=== PATIENT | male | born 1945 | race Caucasian/White ===

== ENCOUNTER 2018-10-18 10:15 | Outpatient (CLI) | payer MEDICARE, OTHER ==
[2018-10-18] MEDS ORDERED: REGADENOSON 0.4 MG/5 ML SYRINGE IVP ONE (11:10)
--- NOTE | 2018-10-18 17:58 | Nuclear Medicine Report ---
Reason: CHEST PAIN Procedure Date: 10/18/2018 Accession Number: [id number] / [id number] Procedure: NM - Myocardial Perfusion STR/RST CPT Code: FULL RESULT: EXAM: Myocardial Perfusion STR/RST DATE: 10/18/2018 1:53 PM CLINICAL HISTORY: CHEST PAIN COMPARISON: None. TECHNIQUE: Patient was injected with 10.7 mCi of technetium 99 M sestamibi. A myocardial perfusion study was attempted. However the patient became claustrophobic and was unable to complete the examination. Dr. Bailon was notified. FINDINGS/IMPRESSION: Unsuccessful myocardial perfusion examination due to claustrophobia.
== END 2018-10-18 10:16 | disposition home or self-care (01) ==
LOC: DI 10:15
PROVIDERS: ATTEND Internal Medicine
DX: R07.9 Chest pain, unspecified (principal)
CPT/HCPCS: 93017; A9500; 78452

== ENCOUNTER 2019-11-04 17:10 | Outpatient (CLI) | payer MEDICARE, OTHER | END 2019-11-04 17:11 | disposition critical access hospital (66) | LOC: EMS 17:10 | PROVIDERS: ATTEND Surgery | DX: R46.4 Slowness and poor responsiveness (principal); R41.0 Disorientation, unspecified | CPT/HCPCS: A0425; A0429 ==

== ENCOUNTER 2019-11-04 17:36 | Emergency (ER) | payer MEDICARE, OTHER ==
[2019-11-04 18:13] LABS: BASOPHILS # (AUTO) 0.1 10^3/uL (0.0-0.1); BASOPHILS % (AUTO) 0.6 %; EOSINOPHILS # (AUTO) 0.1 10^3/uL (0.0-0.7); EOSINOPHILS % (AUTO) 0.6 %; HGB - HEMOGLOBIN 16.6 g/dL (14.0-18.0); LYMPHOCYTES # (AUTO) 0.2 10^3/uL (1.5-3.5); LYMPHOCYTES % (AUTO) 2.6 %; MEAN CORPUSCULAR HEMOGLOBIN 34.9 pg (27.0-31.0); MEAN CORPUSCULAR HGB CONC 35.5 g/dL (32.0-36.0); MEAN CORPUSCULAR VOLUME 98.1 fL (80.0-94.0); MEAN PLATELET VOLUME 10.2 fL (7.4-11.4); MONOCYTES # (AUTO) 0.6 10^3/uL (0.0-1.0); MONOCYTES % (AUTO) 6.4 %; NEUTROPHILS # (AUTO) 7.8 10^3/uL (1.5-6.6); NEUTROPHILS % (AUTO) 89.2 %; PLT - PLATELET COUNT 144 10^3/uL (130-450); RED BLOOD COUNT 4.76 10^6/uL (4.70-6.10); RED CELL DISTRIBUTION WIDTH 13.6 % (12.0-15.0); WHITE BLOOD COUNT 8.8 x10^3/uL (4.8-10.8)
[2019-11-04 18:28] LABS: ALBUMIN 4.5 g/dL (3.2-5.5); ALBUMIN/GLOBULIN RATIO 1.3 (1.0-2.2); BILIRUBIN,TOTAL 0.9 mg/dL (0.2-1.0); CALCIUM 10.4 mg/dL (8.5-10.3); CREATININE 1.6 mg/dL (0.6-1.2); TOTAL PROTEIN 7.9 g/dL (6.7-8.2)
[2019-11-04 20:00] LABS: BILIRUBIN,URINE NEGATIVE (NEGATIVE); GLUCOSE, URINE (UA) NEGATIVE (NEGATIVE); KETONES,URINE (UA) NEGATIVE (NEGATIVE); LEUKOCYTE ESTERASE, URINE NEGATIVE (NEGATIVE); NITRITE,URINE NEGATIVE (NEGATIVE); OCCULT BLOOD,URINE TRACE-INTA (NEGATIVE); PH,URINE 6.5 PH (5.0-7.5); PROTEIN,URINE 30 mg/dL (NEGATIVE); UROBILINOGEN,URINE 0.2 (NORMAL) E.U./dL (NORMAL)
[2019-11-04 20:01] LABS: CLARITY,URINE CLEAR (CLEAR)
[2019-11-04 20:16] LABS: MUDS CUTOFF CONCENTRATIONS CUTOFF CONC BELOW:
[2019-11-04 20:20] LABS: BACTERIA,URINE None Seen /HPF (None Seen); RBC,URINE 0-5 /HPF (0-5); SQUAMOUS EPITHELIAL CELL,UR RARE Squamous (<= Few)
--- NOTE | 2019-11-04 20:21 | XRAY Report ---
PROCEDURE: Chest 1 View X-Ray INDICATIONS: fever TECHNIQUE: One view of the chest was acquired. COMPARISON: None FINDINGS: Surgical changes and devices: None. Lungs and pleura: No pleural effusions or pneumothorax. Lungs are clear. Mediastinum: Mediastinal contours appear normal. Heart is at the upper limits of normal in size. Bones and chest wall: No suspicious bony lesions. Overlying soft tissues appear unremarkable. IMPRESSION: No acute cardiopulmonary disease process. Reviewed by: Janny Rush MD, PhD on 11/04/2019 8:20 PM PDT Approved by: Janny Rush MD, PhD on 11/04/2019 8:20 PM PDT Station ID: [id number]
[2019-11-04 20:30] LABS: AMPHETAMINE SCREEN,URINE NEGATIVE (NEGATIVE); BENZODIAZEPINES SCREEN, URINE NEGATIVE (NEGATIVE); COCAINE SCREEN URINE NEGATIVE (NEGATIVE); METHADONE SCREEN, URINE NEGATIVE (NEGATIVE); METHAMPHETAMINES SCREEN, URINE NEGATIVE (NEGATIVE); OPIATE SCREEN, URINE NEGATIVE (NEGATIVE); OXYCODONE SCREEN, URINE NEGATIVE (NEGATIVE); PROPOXYPHENE SCREEN, URINE NEGATIVE (NEGATIVE); TRICYCLIC ANTIDEPRESSANT,URINE NEGATIVE (NEGATIVE)
--- NOTE | 2019-11-04 21:06 | ED Physician Documentation ---
History of Present Illness - Stated complaint Stated Complaint: MILDLY CONFUSED - Chief complaint Chief Complaint: General - History obtained from History obtained from: Patient - Additonal information Additional information: Patient is a 73-year-old male presents with a chief complaint of fever. Patient brought in by his who reported that he was not quite acting like himself and reported generalized weakness with no facial droop and no unilateral weakness. Reports that he has history of BPH and prostatitis as well. Review of Systems Constitutional: reports: Fever Eyes: reports: Reviewed and negative Ears: reports: Reviewed and negative Nose: reports: Reviewed and negative Throat: reports: Reviewed and negative Cardiac: reports: Reviewed and negative Respiratory: reports: Reviewed and negative GI: reports: Reviewed and negative : reports: Frequency, Hesitancy Skin: reports: Reviewed and negative Musculoskeletal: reports: Reviewed and negative Neurologic: reports: Generalized weakness Psychiatric: reports: Reviewed and negative Endocrine: reports: Reviewed and negative Immunocompromised: reports: Reviewed and negative PD PAST MEDICAL HISTORY - Past Medical History Past Medical History: Yes Cardiovascular: Hypertension Respiratory: None Endocrine/Autoimmune: None GI: Other : Benign prostate hypertrophy HEENT: Macular degeneration Psych: Depression, Anxiety, Bipolar disorder Musculoskeletal: None Derm: None Other Past Medical History: Colon Ca, global amensia - Past Surgical History Past Surgical History: Yes General: Colonoscopy HEENT: Other - Present Medications Home Medications: Ambulatory Orders Medication Instructions Recorded Confirmed Dorzolamide HCl/Timolol Maleat 1 drop EACHEYE DAILY 03/21/15 12/11/16 [Dorzolamide-Timolol Eye Drops] Latanoprost 1 drop EACHEYE QPM 03/21/15 12/11/16 [place] Carbonate 300 mg PO TID 03/21/15 12/11/16 Multivitamin [Multivitamins] 1 each PO DAILY 03/21/15 12/11/16 amLODIPine [Norvasc] 10 mg PO DAILY 03/21/15 12/11/16 busPIRone [Buspar] 10 mg PO TID 03/21/15 12/11/16 carBAMazepine ER [TEGretol XR] 200 mg PO QID 03/21/15 12/11/16 Tamsulosin [Flomax] 0.4 mg PO DAILY 11/21/15 12/11/16 Testosterone Cypionate 200 mg IM OAW 12/11/16 12/11/16 [Depo-Testosterone] Gemfibrozil [Lopid] 600 mg PO BID 11/04/19 11/04/19 Sulfamethox/Trimeth 800/160 1 each PO BID 14 Days #28 tablet 11/04/19 [Bactrim Ds 800/160] - Allergies Allergies/Adverse Reactions: Allergies Allergy/AdvReac Type Severity Reaction Status Date / Time No Known Drug Allergies Allergy Verified 11/04/19 17:44 - Social History Does the pt smoke?: No Smoking Status: Never smoker Does the pt drink ETOH?: No Does the pt have substance abuse?: No PD ED PE NORMAL - Vitals Vital signs reviewed: Yes - General General: Alert and oriented X 3, No acute distress, Well developed/nourished - HEENT HEENT: PERRL - Neck Neck: Supple, no meningeal sign - Cardiac Cardiac: RRR, No murmur - Respiratory Respiratory: Clear bilaterally - Abdomen Abdomen: Normal bowel sounds, Soft, Non tender, Non distended - Male Male : Deferred - Rectal Rectal: Deferred - Derm Derm: Warm and dry - Extremities Extremities: No deformity, No tenderness to palpate, Normal ROM s pain, No edema, No calf tenderness / cord - Neuro Neuro: Alert and oriented X 3, adult caregiver 2-12 intact, No motor deficit, No sensory deficit, Normal speech - Psych Psych: Normal mood, Normal affect Results - Vitals Vitals: Vital Signs - 24 hr 11/04/19 11/04/19 11/04/19 17:44 20:08 20:10 Temperature 38.1 C H 37.4 C Heart Rate 89 85 82 Respiratory 16 20 24 Rate Blood Pressure 169/93 H 140/108 H 140/108 H O2 Saturation 97 96 97 11/04/19 11/04/19 21:07 21:50 Temperature Heart Rate 81 82 Respiratory 22 18 Rate Blood Pressure 163/104 H 177/113 H O2 Saturation 97 99 Oxygen O2 Source Room air - EKG (time done) 17:46 Rate: Other (No STEMI, No prior EKG for comparison, Nonspecific EKG) - Labs Labs: Laboratory Tests 11/04/19 11/04/19 11/04/19 18:10 18:10 18:10 WBC 8.8 RBC 4.76 Hgb 16.6 Hct 46.7 MCV 98.1 H MCH 34.9 H MCHC 35.5 RDW 13.6 Plt Count 144 MPV 10.2 Neut # (Auto) 7.8 H Lymph # (Auto) 0.2 L [place] # (Auto) 0.6 Eos # (Auto) 0.1 Baso # (Auto) 0.1 Absolute Nucleated RBC 0.00 Nucleated RBC % 0.0 Sodium 137 Potassium 4.1 Chloride 103 Carbon Dioxide 20 L Anion Gap 14.0 H BUN 34 H Creatinine 1.6 H Estimated GFR (MDRD) 43 L Glucose 187 H Calcium 10.4 H Total Bilirubin 0.9 AST 16 ALT 16 Alkaline Phosphatase 65 Troponin I High Sens 9.7 Total Protein 7.9 Albumin 4.5 Globulin 3.4 Albumin/Globulin Ratio 1.3 Lipase 39 Urine Color Urine Clarity Urine pH Ur Specific [place] Urine Protein Urine Glucose (UA) Urine Ketones Urine Occult Blood Urine Nitrite Urine Bilirubin Urine Urobilinogen Ur Leukocyte Esterase Urine RBC Urine WBC Ur Squamous Epith Cells Urine Bacteria Ur Microscopic Review Urine Culture Comments Urine Opiates Screen Ur Oxycodone Screen Urine Methadone Screen Ur Propoxyphene Screen Ur Barbiturates Screen Ur Tricyclics Screen Ur Phencyclidine Scrn Ur Amphetamine Screen U Methamphetamines Scrn U Benzodiazepines Scrn Urine Cocaine Screen U Cannabinoids Screen Ethyl Alcohol 11/04/19 11/04/19 11/04/19 18:10 19:51 19:51 WBC RBC Hgb Hct MCV MCH MCHC RDW Plt Count MPV Neut # (Auto) Lymph # (Auto) [place] # (Auto) Eos # (Auto) Baso # (Auto) Absolute Nucleated RBC Nucleated RBC % Sodium Potassium Chloride Carbon Dioxide Anion Gap BUN Creatinine Estimated GFR (MDRD) Glucose Calcium Total Bilirubin AST ALT Alkaline Phosphatase Troponin I High Sens Total Protein Albumin Globulin Albumin/Globulin Ratio Lipase Urine Color YELLOW Urine Clarity CLEAR Urine pH 6.5 Ur Specific [place] 1.010 Urine Protein 30 H Urine Glucose (UA) NEGATIVE Urine Ketones NEGATIVE Urine Occult Blood TRACE-INTA Urine Nitrite NEGATIVE Urine Bilirubin NEGATIVE Urine Urobilinogen 0.2 (NORMAL) Ur Leukocyte Esterase NEGATIVE Urine RBC 0-5 Urine WBC 6-10 H Ur Squamous Epith Cells RARE Squamous Urine Bacteria None Seen Ur Microscopic Review INDICATED Urine Culture Comments INDICATED Urine Opiates Screen NEGATIVE Ur Oxycodone Screen NEGATIVE Urine Methadone Screen NEGATIVE Ur Propoxyphene Screen NEGATIVE Ur Barbiturates Screen NEGATIVE Ur Tricyclics Screen NEGATIVE Ur Phencyclidine Scrn NEGATIVE Ur Amphetamine Screen NEGATIVE U Methamphetamines Scrn NEGATIVE U Benzodiazepines Scrn NEGATIVE Urine Cocaine Screen NEGATIVE U Cannabinoids Screen NEGATIVE Ethyl Alcohol < 5.0 PD MEDICAL DECISION MAKING - ED course Complexity details: reviewed results, re-evaluated patient, considered differential, d/w patient, d/w family ED course: 73-year-old male presents with generalized weakness and fever with no cough COVID screening sent urinalysis will be sent for culture but given the fact that he has a history of BPH and recurrent prostatitis and a fever today we will treat empirically with bactrim first dose given the emergency department. As well as acetaminophen. He has no previous labs or EKG for comparison his EKG was abnormal but no obvious STEMI and a negative troponin and no chest pain. Departure - Departure Disposition: 01 Home, Self Care Clinical Impression: Prostatitis Qualifiers: Prostatitis type: other Qualified Code(s): N41.8 - Other inflammatory diseases of prostate Condition: Stable Instructions: ED Prostatitis Follow-Up: Catherine Bailon MD [Primary Care Provider] - Tomorrow Prescriptions: Sulfamethox/Trimeth 800/160 [Bactrim Ds 800/160] 1 each PO BID 14 Days #28 tablet Comments: Take antibiotics as directed. Take either ibuprofen or Tylenol as needed for pain or fever. Follow with your primary care provider tomorrow if possible.
[2019-11-04] MEDS ORDERED: cephALEXin 250 MG CAPSULE PO STA (21:24)
[2019-11-04] MEDS ORDERED: ACETAMINOPHEN 325 MG TABLET PO STA (21:24)
[2019-11-04 21:50] VITALS: BP 177/113
[2019-11-04] MEDS ORDERED: SULFAMETH/TRIMETH DS 800/160 MG TABLET PO STA (21:56)
== END 2019-11-04 22:15 | disposition home or self-care (01) ==
LOC: EDUNIT# → ED 17:36
DX: N41.8 Other inflammatory diseases of prostate (principal); N40.1 Benign prostatic hyperplasia with lower urinary tract symptoms; R35.0 Frequency of micturition; Z20.828 Contact with and (suspected) exposure to other viral communicable diseases; R94.31 Abnormal electrocardiogram [ECG] [EKG]; I10 Essential (primary) hypertension
CPT/HCPCS: 36415; 71045; 80053; 80306; 81001; 83690; 84484; 85025; 87086; 93005; 99283; A9270; U0004; 80320; 81003

== ENCOUNTER 2020-07-18 10:40 | Day surgery (SDC) | payer MEDICARE, OTHER ==
[2020-07-18] MEDS ORDERED: LACTATED RINGERS 1,000 ML IV ONE ×2 (11:15)
[2020-07-18] MEDS ORDERED: MIDAZOLAM 2 MG/2 ML VIAL ONE ×2 (11:55→12:05)
[2020-07-18] MEDS ORDERED: ONDANSETRON 4 MG/2 ML VIAL ONE (11:56)
[2020-07-18] MEDS ORDERED: fentaNYL 250 MCG/5 ML VIAL ONE (11:56)
[2020-07-18 12:30] VITALS: BP 107/71
== END 2020-07-18 10:41 | disposition home or self-care (01) ==
LOC: SDS 10:40
PROVIDERS: ATTEND Surgery
DX: R19.7 Diarrhea, unspecified (principal); K64.8 Other hemorrhoids; K57.30 Diverticulosis of large intestine without perforation or abscess without bleeding; Z86.010 Personal history of colon polyps; Z85.038 Personal history of other malignant neoplasm of large intestine; Z87.891 Personal history of nicotine dependence
CPT/HCPCS: 45378; J3010; J7120

== ENCOUNTER 2021-07-12 08:00 | Outpatient (CLI) | payer MEDICARE ==
[2021-07-12 15:49] LABS: BASOPHILS # (AUTO) 0.1 10^3/uL (0.0-0.1); BASOPHILS % (AUTO) 0.8 %; EOSINOPHILS # (AUTO) 0.2 10^3/uL (0.0-0.7); EOSINOPHILS % (AUTO) 2.1 %; HCT - HEMATOCRIT 51.1 % (42.0-52.0); HGB - HEMOGLOBIN 17.4 g/dL (14.0-18.0); LYMPHOCYTES # (AUTO) 0.6 10^3/uL (1.5-3.5); LYMPHOCYTES % (AUTO) 7.1 %; MEAN CORPUSCULAR HEMOGLOBIN 33.7 pg (27.0-31.0); MEAN CORPUSCULAR HGB CONC 34.1 g/dL (32.0-36.0); MEAN CORPUSCULAR VOLUME 98.8 fL (80.0-94.0); MEAN PLATELET VOLUME 10.5 fL (7.4-11.4); MONOCYTES # (AUTO) 0.6 10^3/uL (0.0-1.0); MONOCYTES % (AUTO) 6.5 %; NEUTROPHILS # (AUTO) 7.2 10^3/uL (1.5-6.6); PLT - PLATELET COUNT 158 10^3/uL (130-450); RED BLOOD COUNT 5.17 10^6/uL (4.70-6.10); RED CELL DISTRIBUTION WIDTH 12.8 % (12.0-15.0); WHITE BLOOD COUNT 8.6 x10^3/uL (4.8-10.8)
[2021-07-12 16:07] LABS: ALBUMIN 4.6 g/dL (3.2-5.5); ALBUMIN/GLOBULIN RATIO 1.5 (1.0-2.2); ALKALINE PHOSPHATASE 52 IU/L (42-121); ALT ALANINE AMINOTRANSFERASE 26 IU/L (10-60); AST ASPARTATE AMINOTRANSFERASE 15 IU/L (10-42); BILIRUBIN,TOTAL 0.7 mg/dL (0.2-1.0); BUN - BLOOD UREA NITROGEN 37 mg/dL (6-20); CALCIUM 9.8 mg/dL (8.5-10.3); CARBAMAZEPINE (TEGRETOL) 7.4 ug/mL; CARBON DIOXIDE - CO2 24 mmol/L (21-32); CHLORIDE 104 mmol/L (101-111); CHOL/HDL RATIO 4.6 (<5.0); CHOLESTEROL 171 mg/dL; CK- CREATINE KINASE 73 IU/L (22-269); CREATININE 1.6 mg/dL (0.6-1.2); GFR - MDRD 42 (>89); GLUCOSE 119 mg/dL (70-100); HDL CHOLESTEROL 37 mg/dL; LDL CHOLESTEROL,CALCULATED 99 mg/dL; LDL/HDL RATIO 2.7 (<3.6); POTASSIUM 4.2 mmol/L (3.5-5.0); SODIUM 138 mmol/L (135-145); TOTAL PROTEIN 7.6 g/dL (6.7-8.2); TRIGLYCERIDES 176 mg/dL; VLDL CHOLESTEROL 35 mg/dL
[2021-07-12 16:16] LABS: PSA TOTAL 10.01 ng/mL (0.000-2.000)
[2021-07-12 16:20] LABS: THYROID STIMULATING HORMONE 3.73 uIU/mL (0.34-5.60)
[2021-07-12 17:11] LABS: PSA FREE 2.088 ng/mL (0.16-2.81)
[2021-07-12 18:35] LABS: CREATININE,URINE 46.4 mg/dL; MICROALBUMIN,URINE 16.1 mg/dL (0-300.0)
[2021-07-12 22:04] LABS: ESTIMATED AVERAGE GLUCOSE 97 mg/dL (70-100)
== END 2021-07-12 23:59 | disposition home or self-care (01) ==
LOC: LAB.R 08:00
PROVIDERS: ATTEND Internal Medicine
DX: Z00.00 Encounter for general adult medical examination without abnormal findings (principal); N40.0 Benign prostatic hyperplasia without lower urinary tract symptoms; F31.9 Bipolar disorder, unspecified; C18.9 Malignant neoplasm of colon, unspecified; E11.9 Type 2 diabetes mellitus without complications; E78.5 Hyperlipidemia, unspecified; I10 Essential (primary) hypertension; E03.9 Hypothyroidism, unspecified; M81.0 Age-related osteoporosis without current pathological fracture; D75.1 Secondary polycythemia; C64.9 Malignant neoplasm of unspecified kidney, except renal pelvis; N28.9 Disorder of kidney and ureter, unspecified; R29.898 Other symptoms and signs involving the musculoskeletal system; Z86.010 Personal history of colon polyps; Z79.899 Other long term (current) drug therapy
CPT/HCPCS: 80053; 80061; 80156; 80178; 81599; 82043; 82306; 82550; 82570; 82607; 83036; 83721; 84153; 84154; 84403; 84443; 85025

== ENCOUNTER 2023-04-14 08:23 | Observation (INO) | payer MEDICARE ==
[~2023-04-14 08:23] MED LIST: ceFAZolin 2 GM VIAL ONE
[2023-04-14] MEDS: LACTATED RINGERS 1,000 ML IV ONE (08:35)
[2023-04-14] MEDS ORDERED: PROPOFOL 200 MG/20 ML VIAL IVP ONE (08:54)
[2023-04-14] MEDS ORDERED: fentaNYL 100 MCG/2 ML VIAL ONE (08:54)
[2023-04-14] MEDS ORDERED: MIDAZOLAM 2 MG/2 ML VIAL ONE (08:54)
[2023-04-14] MEDS ORDERED: METOCLOPRAMIDE 10 MG/2 ML VIAL IVP PRN (09:29)
[2023-04-14] MEDS ORDERED: MORPHINE 2 MG/ML CARPUJECT IVP PRN ×2 (09:29→13:44)
[2023-04-14] MEDS ORDERED: fentaNYL 100 MCG/2 ML VIAL IVP PRN (09:29)
[2023-04-14] MEDS ORDERED: NALOXONE 0.4 MG/ML VIAL IVP PRN (09:29)
[2023-04-14] MEDS ORDERED: HYDROmorphone 0.5 MG/0.5 ML SYRINGE IVP PRN (09:29)
[2023-04-14] MEDS ORDERED: ATROPINE ABBOJECT 1 MG/10 ML SYRINGE IVP PRN (09:29)
[2023-04-14] MEDS ORDERED: ONDANSETRON 4 MG/2 ML VIAL IVP PRN ×2 (09:29→11:04)
[2023-04-14] MEDS ORDERED: ePHEDrine 50 MG/ML VIAL IVP PRN (09:29)
--- NOTE | 2023-04-14 09:29 | ANESTHESIA ---
Pre-Anesthesia VS, & Labs - Diagnosis BPH - Procedure TURP Height: 5 ft 10 in Weight (kg): 92.7 kg Body Mass Index: 29.3 BMI Classification: Overweight - NPO >8 hours - Lab Results Lab results reviewed: Yes Home Medications and Allergies Home Medications: Ambulatory Orders Ketoconazole 2% Cream [Nizoral 2% Cream] 1 applic TOP DAILY PRN 04/13/23 Timolol 0.25% Ophth Drops [Timoptic 0.25% Ophth Drops] 1 drops EACHEYE BID 04/13/23 Vit A/Vit C/Vit E/Zinc/Copper [Eye Multivitamin Tablet] 1 each PO DAILY 04/13/23 Dorzolamide HCl/Timolol Maleat [Dorzolamide-Timolol Eye Drops] 1 drop EACHEYE BID 03/21/15 Latanoprost 1 drop EACHEYE QPM 03/21/15 [place] Carbonate 300 mg PO QID 03/21/15 amLODIPine [Norvasc] 10 mg PO DAILY 03/21/15 busPIRone [Buspar] 10 mg PO QID PRN 03/21/15 carBAMazepine ER [TEGretol XR] 200 mg PO QID 03/21/15 Testosterone Cypionate [Depo-Testosterone] 150 mg IM ONCE 12/11/16 Ketoconazole 2% Cream [Nizoral 2% Cream] 1 applic TOP DAILY PRN 04/13/23 Timolol 0.25% Ophth Drops [Timoptic 0.25% Ophth Drops] 1 drops EACHEYE BID 04/13/23 Vit A/Vit C/Vit E/Zinc/Copper [Eye Multivitamin Tablet] 1 each PO DAILY 04/13/23 Allergies/Adverse Reactions: Allergies Allergy/AdvReac Type Severity Reaction Status Date / Time No Known Drug Allergies Allergy Verified 11/04/19 17:44 Anes History & Medical History - Anesthetic History Anesthesia Complications: reports: Post-Operative Nausea/Vomiting Family history of Anesthesia Complications: Denies Family history of Malignant Hyperthermia: Denies - Medical History Cardiovascular: reports: Hypertension Pulmonary: reports: None Gastrointestinal: reports: Other Urinary: reports: None, Benign prostate hypertrophy Musculoskeletal: reports: None Endocrine/Autoimmune: reports: None Skin: reports: None Smoking Status: Never smoker - Surgical History General: reports: Bowel surgery, Colonoscopy Eyes Ears Nose Throat (EENT): reports: Other Exam General: Alert, Oriented x3, Cooperative Dental: Dentures full Upper Mouth Openin Fingerbreadth Neck Mobility: Normal Mallampati classification: II Thyromental Distance: 4-6 cm Respiratory: Lungs clear, Normal breath sounds, No respiratory distress Cardiovascular: Regular rate Neurological: Normal speech Mental/Cognitive Status: Alert/Oriented X3, Normal for patient Cognitive Status: Within normal limits Plan Anesthesia Type: General Consent for Procedure(s) Verified and Reviewed: Yes Code Status: Attempt Resuscitation ASA classification: 2-Mild systemic disease Is this case an emergency?: No
[2023-04-14] MEDS ORDERED: LIDOCAINE 2% URO-JET 5 ML SYRINGE UR ONE (09:44)
[2023-04-14] MEDS ORDERED: LACTATED RINGERS 1,000 ML IV SCH (10:00)
[2023-04-14] MEDS ORDERED: ONDANSETRON 4 MG/2 ML VIAL ONE (10:02)
[2023-04-14] MEDS ORDERED: DEXAMETHASONE 4 MG/ML VIAL ONE (10:02)
[2023-04-14] MEDS: LIDOCAINE 2% URO-JET 5 ML SYRINGE UR ONE (10:25)
[2023-04-14] MEDS ORDERED: ePHEDrine 50 MG/ML VIAL IVP ONE (10:39)
[2023-04-14] MEDS ORDERED: SODIUM CHLORIDE 0.9% 10 ML VIAL IVP ONE (10:39)
[2023-04-14] MEDS: LACTATED RINGERS 300 ML IV ONE ×2 (11:04→11:40)
[2023-04-14] MEDS ORDERED: HYDROcod/ACETAM 5/325 MG TABLET PO PRN (11:04)
--- NOTE | 2023-04-14 11:11 | Discharge Plan ---
Discharge Plan Problem Reviewed?: Yes Disposition: Home, Self Care Condition: Good Prescriptions: Docusate Sodium 100Mg Capsule [Colace 100Mg Capsule] 100 mg PO DAILY #7 cap polyethylene glycoL 3350(BULK) [Miralax] 17 gm PO DAILY 7 Days #238 gm oxyCODONE [Roxicodone] 5 mg PO Q4H PRN #10 tablet PRN Reason: Pain Diet: Cardiac Activity Restrictions: Additional Comments (as instructed) Shower Restrictions: No Driving Restrictions: No (do not drive when taking pain medications) Instruction Topics: TURP Home Recover Additional Instructions or Follow Up instructions: Please remove your catheter as instructed in the morning on ThursdayApril 21 No Smoking: If you smoke, Please STOP! Call for help. Follow-up with: Qasim Veliz MD [Provider Admit Priv/Credential] -
--- NOTE | 2023-04-14 11:15 | OPERATIVE REPORT ---
Operative Report - General Procedure Date: 04/14/23 Planned Procedure: Transurethral resection of the prostate Pre-Op Diagnosis: BPH with obstruction Procedure Performed: Transurethral resection of the prostate Post Op Diagnosis: BPH with obstruction - Procedure Note Primary Surgeon: Jose Alfredo Anesthesia Provider: JERI Montez Anesthesia Technique: General LMA Pathology: prostate chips Estimated Blood Loss (mL): 20 Findings: Large prostate with significant median lobe Complications: none - Other Other Information/Narrative: After informed sent was obtained the patient was brought to the OR and laid in the supine position. The patient was anesthetized per anesthesia protocols and passed prepped and draped in usual sterile fashion in the dorsolithotomy position. A formal timeout was performed reconfirming the patient and procedure. A 26 [place] long resectoscope was advanced into the urinary bladder. He was noted to have 1+ trabeculations. He had a very large median lobe and bilateral large lateral lobes which are coapting. His ureteral orifices were orthotopic and identified and they were not injured during the procedure. Using loop electrocautery and the bipolar setting we resected the median lobe from the bladder neck to the verumontanum opening up the channel quite widely. We then turned attention to the left lateral lobe which was then resected again opening up the channel quite widely. We performed a similar resection on the right side. We did not perforate through the capsule. We did not resect distal to the verumontanum. Spot cautery was used for hemostasis periodically throughout the case. Prostate chips were evacuated using 5o9 evacuator and sent for analysis. More cautery was used for hemostasis. He did have a large surface area and so at the conclusion the procedure we placed a Uro-Jet followed by a 22 [place] three-way Torres catheter. 40 cc was placed in the balloon and he was placed on gentle traction. He was then reversed from anesthesia and brought to the PACU without further incident. All counts were correct. He will be monitored in the PACU for now if he does well he will be sent home with a catheter and plan removal in 8 days. If he requires more continuous bladder irrigation he will be kept overnight.
--- NOTE | 2023-04-14 13:01 | ANESTHESIA POST OP EVALUATION ---
Anesthesia Post Eval - Post Anesthesia Eval Vitals: Last Vital Signs Temp 36.7 C 04/14/23 12:24 Pulse 76 04/14/23 12:42 Resp 18 04/14/23 12:42 BP 169/122 H 04/14/23 12:42 Pulse Ox 95 04/14/23 12:42 O2 Flow Rate CV Function Including HR & BP: Stable (BP remains elevated but within 20% of baseline, resume home meds when home) Pain Control: Satisfactory Nausea & Vomiting: Negative Mental Status: Baseline Respiratory Status: Airway Patent Hydration Status: Satisfactory Anesthesia Complications: None
[2023-04-14] MEDS ORDERED: ONDANSETRON ODT 4 MG TABLET TL PRN (13:44)
[2023-04-14] MEDS ORDERED: SODIUM CHLORIDE FLUSH 0.9% 10 ML SYRINGE IVP PRN (13:44)
--- NOTE | 2023-04-14 13:54 | IMMEDIATE POSTOPERATIVE NOTE ---
Immediate Postoperative Note - Procedure Note Procedure Date: 04/14/23 Pre-Op Diagnosis: BPH with obstruction Procedure: TURP Post-Op Diagnosis: BPH with obstruction Primary Surgeon: Jose Alfredo Anesthesia Type: General LMA Findings: Large prostate, oozy Complications: Other (hematuria moderate postop) Estimated Blood Loss (in cc): 20 Drains, Catheters, Devices: [address] gal[address] Specimens and Cultures: prostate chips Plan of Care: In the PACU he is doing well. Vital stable though little hypertensive. Noted to have still bothersome hematuria. It clears easily with CBI but off of it it is a little moderate and I am concerned about him doing well at home. I will keep him overnight on continuous bladder irrigation and monitor. I will keep him n.p.o. and consider a procedure tomorrow
[2023-04-14] MEDS: SODIUM CHLORIDE 0.9% 1,000 ML IV SCH (14:42)
[2023-04-14] MEDS: HYDROcod/ACETAM 5/325 MG TABLET PO PRN (14:57)
[2023-04-14] MEDS: cephALEXin 250 MG CAPSULE PO SCH (17:14)
[2023-04-14] MEDS: SODIUM CHLORIDE FLUSH 0.9% 10 ML SYRINGE IVP SCH (17:15)
[2023-04-14] MEDS: amLODIPine 5 MG TABLET PO SCH (20:06)
[2023-04-14] MEDS: TAMSULOSIN 0.4 MG CAPSULE PO SCH (20:06)
[2023-04-15] MEDS: ACETAMINOPHEN 325 MG TABLET PO PRN (00:19)
--- NOTE | 2023-04-15 08:35 | PROVIDER PROGRESS NOTE ---
Subjective - General Admit Date: 04/14/23 Procedure Date: 04/14/23 Post Op Days: 1 Procedure Performed: TURP - Review of Systems Drain Type: cbi Drain Output Description: clear on slow drip CBI General: positive: No symptoms Genitourinary: positive: No symptoms Objective - Patient Data Reviewed Vital Signs: Yes Vital Signs: Vital Signs x48h Temp Pulse Resp BP Pulse Ox 04/15/23 07:50 36.5 C 74 16 135/90 H 94 04/15/23 03:12 37.0 C 75 18 153/106 H 95 Weight: Weight 04/13/23 04/14/23 04/15/23 23:59 23:59 23:59 Weight (kg) 92.7 kg Intake & Output: Intake and Output Totals x24h 04/13/23 04/14/23 04/15/23 23:59 23:59 23:59 Intake Total 69155 62972.667 Output Total 95500 39569 Balance -0559 -9339.774 - Current Medications Current Medications: Current Medications Generic Name Dose Route Start Last Admin Trade Name Freq PRN Reason Stop Dose Admin Acetaminophen 650 mg 04/14/23 13:44 04/15/23 05:50 Acetaminophen 325 Mg Tablet PO 650 mg Q4HR PRN Administration Pain 1 to 4, or Fever Hydrocodone Bitart/Acetaminophen 1 tab 04/14/23 13:44 04/15/23 03:25 Hydrocod/Acetam 5/325 Mg Tablet PO 1 tab Q4HR PRN Administration Pain 5 to 7 Amlodipine Besylate 10 mg 04/14/23 21:00 04/14/23 20:06 Amlodipine 5 Mg Tablet PO 10 mg DAILY MARII Administration Cephalexin 500 mg 04/14/23 18:00 04/15/23 05:51 Cephalexin 250 Mg Capsule PO 500 mg Q6HR MARII Administration Sodium Chloride 1,000 mls @ 100 mls/hr 04/14/23 14:00 04/15/23 00:20 Normal Saline 0.9% IV 100 mls/hr .Q10H MARII Administration Sodium Chloride 10 ml 04/14/23 17:00 04/15/23 00:20 Sodium Chloride Flush 0.9% 10 Ml Syringe IVP 10 ml 0100,0900,1700 MARII Administration Tamsulosin HCl 0.4 mg 04/14/23 21:00 04/14/23 20:06 Tamsulosin 0.4 Mg Capsule PO 0.4 mg DAILY MARII Administration - Physical Exam General Appearance: positive: No acute distress Cardiovascular: positive: Regular rate & rhythm Abdomen: positive: Non-tender, Other ([address] with clear output on slow drip CBI) ABX Reporting Has patient been on IV antibiotics over the past 48 hours?: No Impression/Plan - Problem List Problem List: 77-year-old male postop day 1 from a TURP procedure admit overnight for continuous bladder irrigation. Doing very well. Urine effluent is clear on slow drip CBI. CBI clamped. Okay to eat. Discharge home today with catheter in place. Plan for removal of catheter on April 21. I will see him in 6 weeks
[2023-04-15] MEDS: polyethylene glycoL 3350 17 GM PACKET PO SCH (08:38)
[2023-04-15] MEDS: FINASTERIDE 5 MG TABLET PO SCH (08:38)
--- NOTE | 2023-04-15 08:41 | DISCHARGE SUMMARY ---
Discharge Summary Admit Date: 04/14/23 Discharge Date: 04/15/23 Discharging Provider: Jose Alfredo Code Status: Attempt Resuscitation Condition at Discharge: Good Discharge Disposition: 01 Home, Self Care - DIAGNOSES Admission Diagnoses: Hematuria requiring continuous bladder irrigation Discharge Diagnoses with Status of Each Condition: BPH with obstruction- resolved Hematuria- resolved - HPI History of Present Illness: 77-year-old male with history of BPH failing tamsulosin and finasteride therapy and a large prostate with large median lobe now status post TURP on April 13. Kept overnight for continuous bladder irrigation. On postop day 1 he was doing quite well with urine clear. We discharged home with catheter in place with plan to remove it on April 21 - HOSPITAL COURSE Hospital Course: Kept overnight for continuous bladder irrigation. This was weaned overnight. In the morning was quite clear on slow drip. He was discharged home with catheter in place - ALLERGIES Allergies/Adverse Reactions: Allergies Allergy/AdvReac Type Severity Reaction Status Date / Time No Known Drug Allergies Allergy Verified 04/14/23 10:59 - MEDICATIONS Home Medications: Ambulatory Orders Medication Instructions Recorded Confirmed Dorzolamide HCl/Timolol Maleat 1 drop EACHEYE BID 03/21/15 04/13/23 [Dorzolamide-Timolol Eye Drops] Latanoprost 1 drop EACHEYE QPM 03/21/15 04/13/23 [place] Carbonate 300 mg PO QID 03/21/15 04/13/23 amLODIPine [Norvasc] 10 mg PO DAILY 03/21/15 04/13/23 busPIRone [Buspar] 10 mg PO QID PRN 03/21/15 04/13/23 carBAMazepine ER [TEGretol XR] 200 mg PO QID 03/21/15 04/13/23 Testosterone Cypionate 150 mg IM ONCE 12/11/16 04/13/23 [Depo-Testosterone] Ketoconazole 2% Cream [Nizoral 2% 1 applic TOP DAILY PRN 04/13/23 04/13/23 Cream] Timolol 0.25% Ophth Drops 1 drops EACHEYE BID 04/13/23 04/13/23 [Timoptic 0.25% Ophth Drops] Vit A/Vit C/Vit E/Zinc/Copper [Eye 1 each PO DAILY 04/13/23 04/13/23 Multivitamin Tablet] Docusate Sodium 100Mg Capsule 100 mg PO DAILY #7 cap 04/14/23 [Colace 100Mg Capsule] Tamsulosin [Flomax] 0.4 mg PO HS 04/14/23 04/14/23 Terbinafine [Lamisil] 250 mg PO DAILY 04/14/23 04/14/23 oxyCODONE [Roxicodone] 5 mg PO Q4H PRN #10 tablet 04/14/23 polyethylene glycoL 3350(BULK) 17 gm PO DAILY 7 Days #238 gm 04/14/23 [Miralax] - PHYSICAL EXAM AT DISCHARGE General Appearance: positive: No acute distress Cardiovascular: positive: Regular rate & rhythm Abdomen: positive: Non-tender, Other ([address]) - FOLLOW UP Follow Up: 05/27/23 at 1:45pm with Dr Veliz. Please arrive 15mins early.
[2023-04-15 10:31] VITALS: BP 149/93; O2SAT 95
== END 2023-04-15 10:43 | disposition home or self-care (01) ==
LOC: SDS 08:23 → MS2 13:44 → SDS 16:57
PROVIDERS: ADMIT Urology; ATTEND Urology
PROC: 0VB08ZZ Excision of Prostate, Via Natural or Artificial Opening Endoscopic (ICD-10-PCS; principal; 2023-04-14 09:45)
DX: N40.1 Benign prostatic hyperplasia with lower urinary tract symptoms (principal); N13.8 Other obstructive and reflux uropathy; R33.8 Other retention of urine; R31.9 Hematuria, unspecified
CPT/HCPCS: 52601; A9270; G0378; J7120

== ENCOUNTER 2023-10-16 08:00 | Outpatient (CLI) | payer MEDICARE | END 2023-10-16 23:59 | disposition home or self-care (01) | LOC: LAB 08:00 | PROVIDERS: ATTEND Urology | DX: R31.9 Hematuria, unspecified (principal) | CPT/HCPCS: 87077; 87086; 87181 ==

== ENCOUNTER 2023-10-27 15:41 | Outpatient (CLI) | payer MEDICARE ==
[2023-10-27 16:46] LABS: PROLACTIN 4.51 ng/mL
[2023-10-28 08:12] LABS: ESTRADIOL 18.4 pg/mL (7.6-42.6); PROGESTERONE 0.1 ng/mL (0.0-0.5)
== END 2023-10-27 15:42 | disposition home or self-care (01) ==
LOC: LAB 15:41
PROVIDERS: ATTEND Nurse Practitioner Family
DX: N52.9 Male erectile dysfunction, unspecified (principal); R68.82 Decreased libido; E29.1 Testicular hypofunction; R31.9 Hematuria, unspecified
CPT/HCPCS: 36415; 82670; 83001; 83002; 84144; 84146; 84402; 84403; 87086